=== PATIENT | female | born 1995 | race American Indian/Alaskan Native ===

== ENCOUNTER 2017-05-03 15:02 | Emergency (ER) | payer BC ==
[2017-05-03 15:19] VITALS: BMI 22.3
[2017-05-03 15:21] VITALS: TEMP 98.8; O2SAT 98
[2017-05-03] MEDS ORDERED: Sodium Chloride 0.9% 1,000 ML IV STA (15:34)
--- NOTE | 2017-05-03 15:38 | ED PDOC ---
Arrival/HPI - General Historian: Patient - General Chief Complaint: Abdominal Pain Time Seen by Provider: 05/03/17 15:22 - History of Present Illness Narrative History of Present Illness (Text): 05/03/17 15:36 21 y/o female, , LMP 04/08/2017, approx. 4-5 weeks , c/o pelvic cramp x 1 week with no fall or trauma. Cramping pain, on and off, no vaginal bleeding or discharge, no headache or night sweat, no urinary symptoms, no abdominal pain, no night sweat, no other medical or psychological complaints. ( Jimbo Elizalde) Past Medical History - Provider Review Nursing Documentation Reviewed: Yes - Psychiatric Hx Substance Use: No Family/Social History - Physician Review Nursing Documentation Reviewed: Yes Family/Social History: Unknown Family HX Smoking Status: Never Smoked Hx Alcohol Use: No Hx Substance Use: No Allergies/Home Meds Allergies/Adverse Reactions: Allergies No Known Allergies Allergy (Verified 05/03/17 15:18) Review of Systems - Review of Systems Constitutional: absent: Fatigue, Fevers Eyes: absent: Vision Changes ENT: absent: Hearing Changes Respiratory: absent: SOB, Cough Cardiovascular: absent: Chest Pain Gastrointestinal: absent: Abdominal Pain, Nausea, Vomiting Genitourinary Female: absent: Dysuria, Frequency, Hematuria, Urine Output Changes, Vaginal Bleeding, Vaginal Discharge Musculoskeletal: absent: Arthralgias, Back Pain, Joint Swelling Skin: absent: Rash, Pruritis, Skin Lesions, Laceration Neurological: absent: Headache, Dizziness Physical Exam Vital Signs Reviewed: Yes Temperature: Afebrile Blood Pressure: Normal Pulse: Regular Respiratory Rate: Normal Appearance: Positive for: Well-Appearing, Non-Toxic, Comfortable Pain Distress: Mild Mental Status: Positive for: Alert and Oriented X 3 - Systems Exam Head: Present: Atraumatic, Normocephalic Pupils: Present: PERRL Extroacular Muscles: Present: EOMI Conjunctiva: Present: Normal Mouth: Present: Moist Mucous Membranes Neck: Present: Normal Range of Motion Respiratory/Chest: Present: Clear to Auscultation, Good Air Exchange. No: Respiratory Distress, Accessory Muscle Use Cardiovascular: Present: Regular Rate and Rhythm, Normal S1, S2. No: Murmurs Abdomen: Present: Normal Bowel Sounds. 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 No: Vaginal Discharge, Vaginal Bleeding, Vaginal Lesions, Adenexal Tenderness, Adenexal Mass, Cervical Motion Tendernes, Odor Back: Present: Normal Inspection Upper Extremity: Present: Normal Inspection. No: Cyanosis, Edema Lower Extremity: Present: Normal Inspection. No: Edema Neurological: Present: GCS=15, CN II-XII Intact, Speech Normal Skin: Present: Warm, Dry, Normal Color. No: Rashes Psychiatric: Present: Alert, Oriented x 3, Normal Insight, Normal Concentration Vital Signs Temp Pulse Resp BP Pulse Ox 05/03/17 16:52 71 18 127/75 98 05/03/17 15:20 98.8 F 76 16 128/79 98 Medical Decision Making - Lab Interpretations I have reviewed the lab results: Yes - RAD Interpretation Medical Social Consultant: Radiologist ED Course and Treatment: I was available for consultation during PA evaluation. The chart was reviewed by me, and I agree with disposition. The documented history was done by the physician child guidance counselor. The documented physical exam was done by the physician child guidance counselor. The documented procedures were done by the physician child guidance counselor. ([place]) 05/03/17 15:37 -labs/us/type and screen -transvaginal sonogram -IVF/tylenol -observe and reassess 05/03/17 17:48 -Pain resolved -There is no active bleeding or signs of acute infection -Labs are non-significant, pt. refused chemistry labs. -UA show no UTI -Blood type B+ -Sonogram show no acute findings but can not rule out ectopic -I discussed the patient in detail about the "can not rule out ectopic " which she should return to the ER in 24-48 hours for the repeat beta hcg or repeat it with her own obgyn. -Discharge home with education on take tylenol for pain as needed, return to the ER or see your own obgyn within 24-48 hours for repeat beta hcg, follow up with your own pmd and obgyn within 2 days, return to the ER sooner if there is any new or worsening signs or symptoms. (Jimbo Elizalde) - Lab Interpretations Lab Results: 05/03/17 15:55 Lab Results 05/03/17 16:17: Blood Type Confirm B POSITIVE 05/03/17 15:55: Blood Type B POSITIVE, Antibody Screen Negative, BBK History Checked No verified bt 05/03/17 15:55: Beta HCG, Quant 128.57 H 05/03/17 15:55: WBC 8.4, RBC 4.77, Hgb 14.3, Hct 42.2, MCV 88.5, MCH 30.0, MCHC 33.9, RDW 13.6, Plt Count 286, MPV 10.8, Gran % 61.0, Lymph % (Auto) 32.1, [place] % (Auto) 4.6, Eos % (Auto) 1.8, Baso % (Auto) 0.5, Gran # 5.12, Lymph # 2.7, [place] # 0.4, Eos # 0.2, Baso # 0.04 05/03/17 15:40: Urine Color Yellow, Urine Appearance Clear, Urine pH 6.0, Ur Specific [place] >= 1.030, Urine Protein Trace H, Urine Glucose (UA) Negative, Urine Ketones Negative, Urine Blood Negative, Urine Nitrate Negative, Urine Bilirubin Negative, Urine Urobilinogen 0.2, Ur Leukocyte Esterase Negative, Urine RBC 1 - 3, Urine WBC 1 - 3, Ur Epithelial Cells 4 - 5, Urine Bacteria Rare , Urine HCG, Qual Positive - RAD Interpretation Radiology Orders: 05/03/17 15:35 OB TRANSVAGINAL [US] Stat PROCEDURE: OB Pelvic Ultrasound HISTORY: approx. 4 weeks , pelvic cramp COMPARISON: None available. FINDINGS: UTERUS: No intrauterine gestation identified. Uterus measures 7.1 x 4.3 x 4.6 cm. No mass The endometrium measures 10 mm in width. No endometrial fluid. CERVIX: Long and closed. No cervical abnormality seen. RIGHT OVARY: Measures 3.5 x 2.8 x 3.6 cm. No mass. Normal flow. LEFT OVARY: Measures 2.4 x 1.9 x 2.4 cm. No mass. Normal flow. FREE FLUID: None. OTHER FINDINGS: None. IMPRESSION: No intrauterine gestation identified. Cannot rule out ectopic on the basis of this examination. Please correlate with serial beta HCG evaluation. ( Jimbo Elizalde) - Medication Orders Current Medication Orders: Sodium Chloride (Sodium Chloride 0.9%) 1,000 mls @ 250 mls/hr IV .Q4H STA Stop: 05/03/17 19:33 Last Admin: 05/03/17 15:40 Dose: 250 mls/hr Discontinued Medications Acetaminophen (Tylenol 325mg Tab) 650 mg PO STAT STA Stop: 05/03/17 15:35 Last Admin: 05/03/17 17:44 Dose: Not Given Non-Admin Reason: Patient Refused - PA / DERRICK MAN / Resident Statement MD/DO has reviewed & agrees with the documentation as recorded. Disposition/Present on Arrival - Present on Arrival Any Indicators Present on Arrival: No History of DVT/PE: No History of Uncontrolled Diabetes: No Urinary Catheter: No History of Decub. Ulcer: No History Surgical Site Infection Following: None - Disposition Have Diagnosis and Disposition been Completed?: Yes Disposition Time: 17:51 Patient Plan: Discharge - Disposition Diagnosis: Pelvic cramping, Disposition: HOME/ ROUTINE Condition: GOOD Additional Instructions: -Discharge home with education on take tylenol for pain as needed, return to the ER or see your own obgyn within 24-48 hours for repeat beta hcg, follow up with your own pmd and obgyn within 2 days, return to the ER sooner if there is any new or worsening signs or symptoms. Prescriptions: Acetaminophen [Tylenol 325mg tab] 2 tab PO QID PRN #35 tab PRN Reason: Other Referrals: Parker Chang MD [Primary Care Provider] - Follow up with primary Jessica Chamberlain MD [Staff Provider] - Follow up with primary Forms: WORK NOTE
[2017-05-03 15:49] LABS: URINE BILIRUBIN NEGATIVE (NEGATIVE); URINE BLOOD NEGATIVE (NEGATIVE); URINE GLUCOSE (UA) NEGATIVE (NEGATIVE); URINE LEUKOCYTE ESTERASE NEGATIVE Leu/uL (NEGATIVE); URINE NITRATE NEGATIVE (NEGATIVE); URINE PROTEIN TRACE mg/dL (<30 mg/dL); URINE UROBILINOGEN 0.2 E.U./dL (<1 E.U./dL)
[2017-05-03 15:50] LABS: URINE APPEARANCE CLEAR (CLEAR); URINE COLOR YELLOW (YELLOW)
[2017-05-03 16:21] LABS: BASO # 0.04 K/mm3 (0.0-2.0); BASO % 0.5 % (0.0-3.0); EOS # 0.2 (0.0-0.7); EOS % 1.8 % (1.5-5.0); GRAN # 5.12 (1.4-6.5); HEMOGLOBIN 14.3 gm/dL (12.0-16.0); LYMPH # 2.7 (1.2-3.4); LYMPH % 32.1 % (22.0-35.0); MEAN CELL VOLUME 88.5 fL (80.0-105.0); MEAN CORPUSCULAR HGB CONC 33.9 g/dl (31.0-37.0); MEAN PLATELET VOLUME 10.8 fl (7.0-11.0); MONO # 0.4 (0.1-0.6); MONO % 4.6 % (1.0-6.0); PLATELET COUNT 286 10^3/uL (120.0-450.0); RBC 4.77 10^6/uL (3.5-6.1); RED CELL DISTRIBUTION WIDTH 13.6 % (11.5-14.5); WHITE BLOOD COUNT 8.4 10^3/ul (4.5-11.0)
[2017-05-03 16:25] LABS: URINE BACTERIA RARE (NEG)
[2017-05-03 16:45] LABS: HCG,QUALITATIVE URINE POSITIVE (NEGATIVE)
[2017-05-03 16:53] VITALS: RESP 18
--- NOTE | 2017-05-03 17:26 | US ---
PROCEDURE: OB Pelvic Ultrasound HISTORY: approx. 4 weeks , pelvic cramp COMPARISON: None available. FINDINGS: UTERUS: No intrauterine gestation identified. Uterus measures 7.1 x 4.3 x 4.6 cm. No mass The endometrium measures 10 mm in width. No endometrial fluid. CERVIX: Long and closed. No cervical abnormality seen. RIGHT OVARY: Measures 3.5 x 2.8 x 3.6 cm. No mass. Normal flow. LEFT OVARY: Measures 2.4 x 1.9 x 2.4 cm. No mass. Normal flow. FREE FLUID: None. OTHER FINDINGS: None. IMPRESSION: No intrauterine gestation identified. Cannot rule out ectopic on the basis of this examination. Please correlate with serial beta HCG evaluation.
[2017-05-03 18:16] VITALS: BP 125/74; PULSE 68
== END 2017-05-03 18:27 | disposition home or self-care (01) ==
LOC: ED 15:02
DX: O26.891 Other specified pregnancy related conditions, first trimester (principal); Z3A.01 Less than 8 weeks gestation of pregnancy; R10.2 Pelvic and perineal pain
CPT/HCPCS: 76817; 81001; 84702; 84703; 85025; 86850; 86900; 99284; J7040